=== PATIENT | male | born 1940 | race Caucasian/White ===

== ENCOUNTER 2019-04-08 11:38 | Inpatient (IN) | payer MEDICARE ==
[~2019-04-08] VITALS: Ht 185.4 cm; Wt 90.0 kg
[2019-04-08 12:38] LABS: BASOPHILS # (AUTO) 0.1 X10'3 (0-0.2); BASOPHILS % (AUTO) 1.2 % (0-1); EOSINOPHILS # (AUTO) 2.3 X10'3 (0-0.9); EOSINOPHILS % (AUTO) 24.2 % (0-6); HEMATOCRIT 43.3 % (42.0-52.0); HEMOGLOBIN 14.6 g/dl (14.0-17.9); LYMPHOCYTES # (AUTO) 1.6 X10'3 (1.1-4.8); LYMPHOCYTES % (AUTO) 17.5 % (21-51); MEAN CORPUSCULAR HEMOGLOBIN 31.1 PG (27.0-31.0); MEAN CORPUSCULAR HGB CONC 33.7 g/dL (33.0-36.5); MEAN CORPUSCULAR VOLUME 92.3 FL (78-98); MEAN PLATELET VOLUME 7.9 FL (7.4-10.4); MONOCYTES % (AUTO) 10.7 % (2-12); NEUTROPHILS # (AUTO) 4.3 X10'3 (1.8-7.7); NEUTROPHILS % (AUTO) 46.4 % (42-75); PLATELET COUNT 332 X10'3 (140-440); RED BLOOD COUNT 4.69 X10'6 (4.70-6.10); RED CELL DISTRIBUTION WIDTH 14.6 % (11.5-14.5); WHITE BLOOD COUNT 9.3 X10'3 (4.5-11.0)
[2019-04-08] MEDS ORDERED: methylPREDNISolone sod succ 125mg/2ml vial IV ONE (12:50)
[2019-04-08] MEDS ORDERED: ipratropium/albuterol 3ml nebule NEB ONE (12:55)
[2019-04-08] MEDS ORDERED: levoFLOXACIN-Levaquin 750MG/D5 150 ML IV ONE (12:55)
[2019-04-08 13:01] LABS: PARTIAL THROMBOPLASTIN TIME 29 SECONDS (22-32)
[2019-04-08 13:06] LABS: ALANINE AMINOTRANSFERASE 29 U/L (12-78); ALBUMIN 3.2 G/DL (3.4-5.0); ALBUMIN/GLOBULIN RATIO 0.7 (1.1-1.5); ALKALINE PHOSPHATASE 220 IU/L (46-116); ANION GAP 6 (8-16); ASPARTATE AMINO TRANSFERASE 20 U/L (10-37); BILIRUBIN,TOTAL 0.6 MG/DL (0.1-1.0); BLOOD UREA NITROGEN 9 MG/DL (7-18); BUN/CREATININE RATIO 10.1 (5.4-32.0); CALCIUM 8.9 MG/DL (8.5-10.1); CHLORIDE 101 MMOL/L (99-107); CREATININE 0.89 MG/DL (0.60-1.10); GLUCOSE 151 MG/DL (70-104); POTASSIUM 3.8 MMOL/L (3.5-5.1); SODIUM 136 MMOL/L (135-145); TOTAL CARBON DIOXIDE 29.2 MMOL/L (24-32); eGFR 83 ML/MIN
--- NOTE | 2019-04-08 13:12 | NUR ---
rt at bedside
[2019-04-08 13:14] LABS: TOTAL CELLS COUNTED 100
[2019-04-08 13:15] LABS: PLATELET ESTIMATE NORMAL
[2019-04-08] MEDS ORDERED: ALBU18HF2 INH (14:27)
[2019-04-08] MEDS ORDERED: SITA1TBM7 PO (14:27)
[2019-04-08] MEDS ORDERED: BENA20TA76 PO (14:27)
[2019-04-08] MEDS ORDERED: GLIM1TAB3 PO (14:27)
[2019-04-08] MEDS ORDERED: ATOR40TA71 PO (14:27)
[2019-04-08] MEDS ORDERED: CEPH-572 PO (14:27)
[2019-04-08] MEDS ORDERED: UMEC1DIS INH (14:27)
[2019-04-08] MEDS ORDERED: GLIM4TAB4 PO (14:29)
[2019-04-08] MEDS ORDERED: dextrose 50%-water 50ml dispensing syringe IV PRN ×2 (14:50)
[2019-04-08] MEDS ORDERED: MESSAGE TO PHARMACY PO ONE (14:50)
[2019-04-08] MEDS ORDERED: morphine 2 MG/ML inj. syringe IV PRN ×2 (14:50)
[2019-04-08] MEDS ORDERED: glucagon, human recombinant 1mg kit SUBCUT PRN (14:50)
[2019-04-08] MEDS ORDERED: magnesium hydroxide 30ml (MOM) UD suspension PO PRN (14:50)
[2019-04-08] MEDS ORDERED: mag hydrox/Alum hydrox/simeth 30ml oral suspension PO PRN (14:50)
[2019-04-08] MEDS ORDERED: ondansetron/PF 4mg/2ml inj IV PRN (14:50)
[2019-04-08] MEDS ORDERED: insulin Lispro (HumaLOG) vial - multi-dose SQ SCH (14:50)
[2019-04-08] MEDS ORDERED: HYDROcodone/acetaminophen 5mg/325mg tablet PO PRN (14:50)
[2019-04-08] MEDS ORDERED: acetaminophen 325mg tablet PO PRN ×2 (14:50)
[2019-04-08] MEDS ORDERED: dextrose ORAL solution 15 GM/59 ML bottle PO PRN ×2 (14:50)
[2019-04-08 15:18] LABS: HEMOGLOBIN A1C 6.5 % (4.5-6.2)
[2019-04-08] MEDS: methylPREDNISolone sod succ 125mg/2ml vial IV SCH (16:23)
[2019-04-08 17:00] VITALS: BP 168/85
--- NOTE | 2019-04-08 17:00 | NUR ---
Pt has arrived to floor, at bedside, Report received from Mary VIVEROS
--- NOTE | 2019-04-08 17:25 | NUR ---
Pt refusing blood sugar checks until brings his own finger sticks to poke finger. He does not like ours.
--- NOTE | 2019-04-08 18:53 | NUR ---
Problems reprioritized. Patient report given, questions answered & plan of care reviewed with Fartun Tom.
[2019-04-08] MEDS ORDERED: ipratropium/albuterol 3ml nebule NEB PRN (19:40)
[2019-04-08] MEDS ORDERED: benzonatate 100mg capsule PO PRN (19:50)
[2019-04-08 20:00] VITALS: BP 129/86
[2019-04-08] MEDS: heparin, porcine 5000 units/ml vial SQ SCH (20:00)
[2019-04-08] MEDS ORDERED: insulin glargine (Lantus) pen - multi-dose SQ SCH (21:00)
[2019-04-08] MEDS: ipratropium/albuterol 3ml nebule NEB PRN (21:46)
[2019-04-09 00:08] VITALS: BP 103/60
[2019-04-09] MEDS: methylPREDNISolone sod succ 125mg/2ml vial IV SCH ×2 (00:29→09:11)
--- NOTE | 2019-04-09 02:09 | NUR ---
Patient in room [facility] 350. I have received report from JACKELINE Arnold and had the opportunity to ask questions and assume patient care. Addendum: 04/09/19 at 0210 by Fartun Brown RN Amended: Links added.
[2019-04-09 05:33] LABS: BASOPHILS % (AUTO) 0.5 % (0-1); EOSINOPHILS % (AUTO) 0.1 % (0-6); HEMATOCRIT 42.3 % (42.0-52.0); LYMPHOCYTES # (AUTO) 0.7 X10'3 (1.1-4.8); LYMPHOCYTES % (AUTO) 12.8 % (21-51); MEAN CORPUSCULAR HEMOGLOBIN 30.6 PG (27.0-31.0); MEAN CORPUSCULAR VOLUME 92.7 FL (78-98); MEAN PLATELET VOLUME 8.4 FL (7.4-10.4); MONOCYTES # (AUTO) 0.1 X10'3 (0-0.9); MONOCYTES % (AUTO) 2.2 % (2-12); NEUTROPHILS # (AUTO) 4.5 X10'3 (1.8-7.7); NEUTROPHILS % (AUTO) 84.4 % (42-75); PLATELET COUNT 337 X10'3 (140-440); RED BLOOD COUNT 4.57 X10'6 (4.70-6.10); RED CELL DISTRIBUTION WIDTH 14.3 % (11.5-14.5); WHITE BLOOD COUNT 5.4 X10'3 (4.5-11.0)
[2019-04-09 05:41] LABS: ANION GAP 6 (8-16); BLOOD UREA NITROGEN 12 MG/DL (7-18); CHLORIDE 100 MMOL/L (99-107); CREATININE 0.92 MG/DL (0.60-1.10); GLUCOSE 250 MG/DL (70-104); POTASSIUM 4.2 MMOL/L (3.5-5.1); SODIUM 133 MMOL/L (135-145); TOTAL CARBON DIOXIDE 26.8 MMOL/L (24-32); eGFR 80 ML/MIN
--- NOTE | 2019-04-09 06:10 | NUR ---
Patient in room [facility] 350. I have received report from JACKELINE Willoughby and had the opportunity to ask questions and assume patient care.
--- NOTE | 2019-04-09 06:24 | NUR ---
Problems reprioritized. Patient report given, questions answered & plan of care reviewed with JACKELINE Persaud. Addendum: 04/09/19 at 0624 by Fartun Brown RN Amended: Links added.
--- NOTE | 2019-04-09 06:33 | NUR ---
Problems reprioritized. Patient report given, questions answered & plan of care reviewed with JACKELINE Persaud. Addendum: 04/09/19 at 0633 by Fartun Brown RN Amended: Links added.
[2019-04-09 07:27] VITALS: BP 136/89
[2019-04-09] MEDS: heparin, porcine 5000 units/ml vial SQ SCH (08:00)
[2019-04-09] MEDS ORDERED: non-formulary drug (Umeclidinium Brm/Vilanterol Tr (Anoro Ellipta 62.5-25 Mcg INH) 1 PUFF) INH SCH (08:00)
[2019-04-09] MEDS ORDERED: levoFLOXACIN-Levaquin 750MG/D5 150 ML IV SCH (08:00)
[2019-04-09] MEDS ORDERED: VILANTEROL IH SCH (08:00)
[2019-04-09] MEDS ORDERED: non-formulary drug (Atorvastatin Calcium 1 TAB) PO SCH (08:00)
[2019-04-09] MEDS ORDERED: UMECLIDINIUM IH SCH (08:00)
[2019-04-09] MEDS ORDERED: BENAZEPRIL HCL PO SCH (08:00)
[2019-04-09] MEDS ORDERED: lisinopril 20mg tablet PO SCH (08:00)
[2019-04-09] MEDS ORDERED: atorvastatin 20mg tablet PO SCH (08:00)
--- NOTE | 2019-04-09 09:00 | NUR ---
Patient refusing insulin. He is wanting to go AMA if the doctor won't discharge him. The patient said he takes pills at home and doesn't want insulin. He though that his sugar was a false high reading because he had a splenda packet before Francoise, RN took it. I explained that his sugar was around 250 on his labs this am, and that was round 0400. I also explained that solumedrol would make his sugar go up as well. He understood but thought that the solumedrol was the cause so he didn't need anything. I explained that just because a medication is causing the elevated sugar doesn't mean that we don't treat it. I understood but didn't want any insulin. He said that he would take his pill when he got home.
[2019-04-09] MEDS ORDERED: LEVO750T46 PO (09:24)
[2019-04-09] MEDS ORDERED: PRED10TA23 PO (09:24)
[2019-04-09] MEDS: ipratropium/albuterol 3ml nebule NEB PRN (09:36)
--- NOTE | 2019-04-09 10:00 | NUR ---
O2 Sat at rest on room air: 91% If below 89%: If O2 Sat did not drop below 89% on room air,ambulate patient on room air. O2 Sat while ambulating on room air: 87% Recovery O2 Sat while ambulating on LPM: 1.5% No further documentation is necessary. If patient does not drop below 89% while ambulating, he/she does not qualify for home O2. Addendum: 04/09/19 at 1034 by Cori Arellano RN Recovery O2 is 1L. Addendum: 04/09/19 at 1419 by Cori Arellano RN 94% on 1L of O2.
[2019-04-09 11:30] VITALS: BP 102/53
--- NOTE | 2019-04-09 11:53 | NUR ---
pt refused 1200 accucheck
--- NOTE | 2019-04-09 12:30 | NUR ---
Patient discharged. PIV removed: Cath tip intact. Education given and patient verbalized understanding. Given extensive info regarding smoking cessation. Patient encouraged to try nicotine patches. Patient was also given the diabetic survival skills and encouraged to come to the class if he has any questions. Patient was wheeled down by staff.
== END 2019-04-09 12:24 | disposition home or self-care (01) | DRG 189 ==
LOC: ER 11:39 → SUR 3N 17:04 → CMPBEDREQ 19:50
PROVIDERS: ADMIT Internal Medicine; ATTEND Internal Medicine
DX: J96.01 Acute respiratory failure with hypoxia (principal); J44.0 Chronic obstructive pulmonary disease with (acute) lower respiratory infection; J44.1 Chronic obstructive pulmonary disease with (acute) exacerbation; E11.9 Type 2 diabetes mellitus without complications; E78.5 Hyperlipidemia, unspecified; F12.90 Cannabis use, unspecified, uncomplicated; F17.210 Nicotine dependence, cigarettes, uncomplicated; J20.9 Acute bronchitis, unspecified; Z88.1 Allergy status to other antibiotic agents; Z79.84 Long term (current) use of oral hypoglycemic drugs; Z79.899 Other long term (current) drug therapy
CPT/HCPCS: 36415; 71045; 80048; 80053; 82948; 83036; 83880; 84145; 85025; 85610; 85730; 87040; 87081; 93005; 94640; 94760; 96365; 96375; 99285; G0378; J1644; J1815; J1956; J2930

== ENCOUNTER 2019-06-01 04:53 | Emergency (ER) | payer MEDICARE ==
[~2019-06-01] VITALS: Ht 185.4 cm; Wt 90.9 kg
[~2019-06-01 04:53] MED LIST: ALBU18HF2 INH; ATOR40TA71 PO; BENA20TA76 PO; GLIM4TAB4 PO; SITA1TBM7 PO; UMEC1DIS INH
[2019-06-01] MEDS ORDERED: methylPREDNISolone sod succ 125mg/2ml vial IV ONE (05:00)
[2019-06-01] MEDS ORDERED: albuterol 2.5 MG/3 ML nebule CONTNEB PRN (05:00)
[2019-06-01] MEDS ORDERED: normal saline 1000ml 1,000 ML IV ONE (05:00)
[2019-06-01 05:38] LABS: HEMATOCRIT 41.6 % (42.0-52.0); HEMOGLOBIN 13.8 g/dl (14.0-17.9); MEAN CORPUSCULAR HEMOGLOBIN 30.5 PG (27.0-31.0); MEAN CORPUSCULAR HGB CONC 33.1 g/dL (33.0-36.5); MEAN CORPUSCULAR VOLUME 92.1 FL (78-98); MEAN PLATELET VOLUME 8.1 FL (7.4-10.4); PLATELET COUNT 272 X10'3 (140-440); RED BLOOD COUNT 4.51 X10'6 (4.70-6.10); RED CELL DISTRIBUTION WIDTH 15.1 % (11.5-14.5); WHITE BLOOD COUNT 11.6 X10'3 (4.5-11.0)
[2019-06-01 05:48] LABS: PARTIAL THROMBOPLASTIN TIME 27 SECONDS (22-32)
[2019-06-01 05:52] LABS: ALANINE AMINOTRANSFERASE 27 U/L (12-78); ALBUMIN 3.1 G/DL (3.4-5.0); ALBUMIN/GLOBULIN RATIO 0.7 (1.1-1.5); ALKALINE PHOSPHATASE 195 IU/L (46-116); ANION GAP 9 (8-16); ASPARTATE AMINO TRANSFERASE 20 U/L (10-37); BILIRUBIN,TOTAL 0.6 MG/DL (0.1-1.0); BLOOD UREA NITROGEN 10 MG/DL (7-18); BUN/CREATININE RATIO 11.6 (5.4-32.0); CALCIUM 9.4 MG/DL (8.5-10.1); CHLORIDE 104 MMOL/L (99-107); CREATININE 0.86 MG/DL (0.60-1.10); GLUCOSE 144 MG/DL (70-104); MAGNESIUM 1.8 MG/DL (1.5-2.4); POTASSIUM 3.5 MMOL/L (3.5-5.1); SODIUM 141 MMOL/L (135-145); TOTAL CARBON DIOXIDE 27.6 MMOL/L (24-32); TOTAL PROTEIN 7.5 G/DL (6.4-8.2); eGFR 86 ML/MIN
[2019-06-01 06:11] LABS: TOTAL CELLS COUNTED 100
[2019-06-01 06:12] LABS: ANISOCYTOSIS 1+; PLATELET ESTIMATE NORMAL
[2019-06-01] MEDS ORDERED: PRED20TA PO (07:36)
--- NOTE | 2019-06-01 07:50 | NUR ---
DR ESCAMILLA INFORMED OF PT BLOOD PRESSURE, NO ORDER RECEIVED AT THIS TIME, PT OK TO BE DISCHARGE PT DOES NOT WANT TO BE ADMITTED PER DR ESCAMILLA
[2019-06-01 08:25] VITALS: BP 111/66
== END 2019-06-01 08:27 | disposition home or self-care (01) ==
LOC: ER 04:54
DX: J44.1 Chronic obstructive pulmonary disease with (acute) exacerbation (principal); R06.03 Acute respiratory distress; R00.0 Tachycardia, unspecified; F12.90 Cannabis use, unspecified, uncomplicated; Z98.890 Other specified postprocedural states; Z87.891 Personal history of nicotine dependence; Z88.1 Allergy status to other antibiotic agents; Z79.899 Other long term (current) drug therapy
CPT/HCPCS: 36415; 71045; 80053; 83605; 83735; 84484; 85025; 85610; 85730; 87040; 93005; 94644; 94760; 96374; 99291; J2930; J7030; 94640

== ENCOUNTER 2021-05-09 16:58 | Emergency (ER) | payer MEDICARE ==
[~2021-05-09] VITALS: Ht 182.9 cm; Wt 93.6 kg
[~2021-05-09 16:58] MED LIST changes: -GLIM4TAB4 PO; +GLIM4TAB7 PO
[2021-05-09] MEDS ORDERED: acetaminophen 325mg tablet PO STA (17:49)
[2021-05-09 19:14] LABS: BASOPHILS % (AUTO) 0.7 % (0-1); EOSINOPHILS % (AUTO) 0.8 % (0-6); HEMATOCRIT 38.6 % (42.0-52.0); HEMOGLOBIN 12.9 g/dl (14.0-17.9); LYMPHOCYTES # (AUTO) 0.4 X10'3 (1.1-4.8); LYMPHOCYTES % (AUTO) 7.7 % (21-51); MEAN CORPUSCULAR HEMOGLOBIN 31.6 PG (27.0-31.0); MEAN CORPUSCULAR HGB CONC 33.5 g/dL (33.0-36.5); MEAN CORPUSCULAR VOLUME 94.3 FL (78-98); MEAN PLATELET VOLUME 8.5 FL (7.4-10.4); MONOCYTES # (AUTO) 0.9 X10'3 (0-0.9); MONOCYTES % (AUTO) 18.2 % (2-12); NEUTROPHILS # (AUTO) 3.6 X10'3 (1.8-7.7); NEUTROPHILS % (AUTO) 72.6 % (42-75); PLATELET COUNT 192 X10'3 (140-440); RED BLOOD COUNT 4.09 X10'6 (4.70-6.10); RED CELL DISTRIBUTION WIDTH 14.8 % (11.5-14.5)
[2021-05-09 19:42] LABS: ALANINE AMINOTRANSFERASE 74 U/L (12-78); ALBUMIN 3.1 G/DL (3.4-5.0); ALBUMIN/GLOBULIN RATIO 0.8 (1.1-1.5); ALKALINE PHOSPHATASE 156 IU/L (46-116); ANION GAP 9 (8-16); ASPARTATE AMINO TRANSFERASE 71 U/L (10-37); BILIRUBIN,TOTAL 0.3 MG/DL (0.1-1.0); BLOOD UREA NITROGEN 12 MG/DL (7-18); BUN/CREATININE RATIO 12.9 (5.4-32.0); CALCIUM 7.5 MG/DL (8.5-10.1); CHLORIDE 102 MMOL/L (99-107); CREATININE 0.93 MG/DL (0.60-1.10); GLUCOSE 205 MG/DL (70-104); MAGNESIUM 2.3 MG/DL (1.5-2.4); POTASSIUM 4.1 MMOL/L (3.5-5.1); SODIUM 138 MMOL/L (135-145); TOTAL CARBON DIOXIDE 26.6 MMOL/L (24-32); TOTAL PROTEIN 6.8 G/DL (6.4-8.2); eGFR 79 ML/MIN
[2021-05-09] MEDS ORDERED: CASIRIVIMAB/IMDEVIMAB inject. 10 ML in normal saline 100ml IV soln 100 ML IV ONE (20:35)
[2021-05-09 21:00] VITALS: BP 136/69
--- NOTE | 2021-05-09 21:05 | NUR ---
PT IS RESTING QUIETLY ON GURNEY, PT READ INFO REGARDING REGENERON AND DECIDED TO DECLINE MEDICATION, DR CHIU AWARE, PT SAID HE WOULD LIKE TO GO HOME AND TREAT SELF WITH OTC MEDS, FLUID. PT LIVES WITH HIS AND HIS DAUGHTER CAN HELP OUT
[2021-05-09] MEDS ORDERED: DEXA6TAB6 PO (21:30)
[2021-05-10] MEDS ORDERED: GLIM4TAB7 PO (23:37)
[2021-05-10] MEDS ORDERED: SITA1TBM7 PO (23:37)
[2021-05-10] MEDS ORDERED: FLO0.4C PO (23:54)
[2021-05-10] MEDS ORDERED: DIGO250T2 PO (23:56)
[2021-05-10] MEDS ORDERED: PROC10TA10 PO (23:56)
[2021-05-10] MEDS ORDERED: FLUT1BLS4 INH (23:57)
== END 2021-05-09 21:45 | disposition home or self-care (01) ==
LOC: ER 16:59
DX: U07.1 COVID-19 (principal); R26.89 Other abnormalities of gait and mobility; J44.9 Chronic obstructive pulmonary disease, unspecified; F12.90 Cannabis use, unspecified, uncomplicated; Z72.89 Other problems related to lifestyle; Z98.890 Other specified postprocedural states; Z88.0 Allergy status to penicillin; Z88.1 Allergy status to other antibiotic agents; Z79.899 Other long term (current) drug therapy
CPT/HCPCS: 36415; 71045; 80053; 83605; 83735; 84145; 85025; 87040; 87077; 87186; 87635; 93005; 99285; C9803

== ENCOUNTER 2021-05-10 21:26 | Inpatient (IN) | payer MEDICARE ==
[~2021-05-10] VITALS: Ht 182.9 cm; Wt 94.0 kg
[~2021-05-10 21:26] MED LIST changes: +DEXA6TAB6 PO
[2021-05-10] MEDS ORDERED: normal saline 1000ML IV soln IVB ONE (21:35)
[2021-05-10] MEDS ORDERED: dexamethasone inj 8 MG in normal saline 50ml IV soln 50 ML IV ONE (21:35)
[2021-05-10] MEDS ORDERED: ALBUTEROL INHALER 1 PUFF/90 MCG INHALER IH PRN (21:35)
[2021-05-10 21:59] LABS: BASOPHILS % (AUTO) 0.5 % (0-1); EOSINOPHILS % (AUTO) 0.6 % (0-6); HEMATOCRIT 39.4 % (42.0-52.0); HEMOGLOBIN 13.2 g/dl (14.0-17.9); LYMPHOCYTES # (AUTO) 0.5 X10'3 (1.1-4.8); LYMPHOCYTES % (AUTO) 12.4 % (21-51); MEAN CORPUSCULAR HEMOGLOBIN 31.4 PG (27.0-31.0); MEAN CORPUSCULAR HGB CONC 33.5 g/dL (33.0-36.5); MONOCYTES # (AUTO) 0.7 X10'3 (0-0.9); MONOCYTES % (AUTO) 17.1 % (2-12); NEUTROPHILS % (AUTO) 69.4 % (42-75); PLATELET COUNT 169 X10'3 (140-440); RED BLOOD COUNT 4.19 X10'6 (4.70-6.10); RED CELL DISTRIBUTION WIDTH 14.7 % (11.5-14.5); WHITE BLOOD COUNT 4.3 X10'3 (4.5-11.0)
[2021-05-10] MEDS ORDERED: acetaminophen 325mg tablet PO ONE (22:00)
[2021-05-10 22:13] LABS: D-DIMER 1.21 MG/L FEU (0-0.50)
[2021-05-10 22:34] LABS: ALANINE AMINOTRANSFERASE 71 U/L (12-78); ALBUMIN 3.4 G/DL (3.4-5.0); ALBUMIN/GLOBULIN RATIO 0.9 (1.1-1.5); ALKALINE PHOSPHATASE 160 IU/L (46-116); ANION GAP 6 (8-16); ASPARTATE AMINO TRANSFERASE 78 U/L (10-37); BILIRUBIN,TOTAL 0.3 MG/DL (0.1-1.0); BLOOD UREA NITROGEN 13 MG/DL (7-18); BUN/CREATININE RATIO 12.6 (5.4-32.0); C-REACTIVE PROTEIN 3.53 MG/DL (0.0-0.5); CALCIUM 7.7 MG/DL (8.5-10.1); CHLORIDE 102 MMOL/L (99-107); CREATININE 1.03 MG/DL (0.60-1.10); GLUCOSE 181 MG/DL (70-104); POTASSIUM 3.8 MMOL/L (3.5-5.1); SODIUM 136 MMOL/L (135-145); TOTAL CARBON DIOXIDE 27.8 MMOL/L (24-32); eGFR 70 ML/MIN
[2021-05-10] MEDS ORDERED: CefTRIAXone 2gm/D5W 50ml BAG 50 ML IV ONE (22:35)
[2021-05-10] MEDS ORDERED: normal saline 1000ML IV soln IV ONE (22:35)
[2021-05-10] MEDS ORDERED: vancomycin/NS 1 GM ADD-VANTAGE 250 ML IV ONE (22:35)
[2021-05-10 22:57] LABS: NEUTROPHILS % (MANUAL) 69 % (42-75); TOTAL CELLS COUNTED 100
[2021-05-10 22:58] LABS: BANDS% (MANUAL) 6 % (0-10); LYMPHOCYTES % (MANUAL) 15 % (21-51); MONOCYTES % (MANUAL) 10 % (2-12); PLATELET ESTIMATE NORMAL
[2021-05-10] MEDS ORDERED: iohexol 350MG/ML 100ml bottle IV ONE (23:26)
[2021-05-10] MEDS ORDERED: GLIM4TAB7 PO (23:37)
[2021-05-10] MEDS ORDERED: SITA1TBM7 PO (23:37)
[2021-05-10] MEDS ORDERED: FLO0.4C PO (23:54)
[2021-05-10] MEDS ORDERED: DIGO250T2 PO (23:56)
[2021-05-10] MEDS ORDERED: PROC10TA10 PO (23:56)
[2021-05-10] MEDS ORDERED: FLUT1BLS4 INH (23:57)
--- NOTE | 2021-05-10 23:58 | NUR ---
PTS BLOOD CULTURES DRAWN ON THE DURING HIS ER VISIT HERE ARE POSITIVE (ANEROBIC BOTTLE WITH GRAM + COCCI IN CLUSTERS). JAMAL VILLAFUERTE UPDATED AND ALREADY AWARE OF THIS. PTS HAD ANOTHER SET OF BLOOD CULTURES DRAWN 2 HRS AGO AND LAB CALLING TO CLARIFY IF PROVIDER WANTS THEM RUN. PER JAMAL VILLAFUERTE, HE ONLY WANTS ONE OF THE NEW SETS CULTURED. LAB UPDATED OF THIS. PT TAKEN TO CTA OF CHEST. PT REPORTS HE HAS BEEN GETTING WORSE AND CANNOT EVEN GET UP OUT OF THE BED. I ASSISTED PT TO SIT TO [place] AND HE ATTEMPTED TO USE THE URINAL WITH NO SUCCESS. PT REQUIRED MAX ASSIST TO BALANCE WHILE SITTIING UP. STATES AT BASELINE HE CAN GET UP AND MOVE AROUND WEEL AND REQUIRES NO ASSISTIVE DEVICE. PTS IS CURRENTLY IN THE ER AND TO BE ADMITTED HERE AND IS ALSO COVID +. PT PROVIDED A PHONE TO CALL HER.
[2021-05-11] MEDS ORDERED: enoxaparin 100mg/ml syringe SUBCUT ONE
[2021-05-11] MEDS ORDERED: ALBUTEROL INHALER 1 PUFF/90 MCG INHALER IH PRN (00:35)
[2021-05-11] MEDS ORDERED: proCHLORperazine 10mg tablet PO PRN (00:35)
[2021-05-11] MEDS ORDERED: potassium Cl 20 mEq SR tablet PO PRN ×2 (00:45)
[2021-05-11] MEDS ORDERED: dextrose ORAL solution 15 GM/59 ML bottle PO PRN ×2 (00:45)
[2021-05-11] MEDS ORDERED: ondansetron/PF 4mg/2ml inj IV PRN (00:45)
[2021-05-11] MEDS ORDERED: dextrose 50%-water 50ml dispensing syringe IV PRN ×2 (00:45)
[2021-05-11] MEDS ORDERED: MESSAGE TO PHARMACY PO ONE (00:45)
[2021-05-11] MEDS ORDERED: acetaminophen 325mg tablet PO PRN ×2 (00:45→23:40)
[2021-05-11] MEDS ORDERED: magnesium 2GM in 50ml NS 50 ML IV PRN (00:45)
[2021-05-11] MEDS ORDERED: potassium Cl 40MEQ/1/2NS 520ml 520 ML IV PRN ×2 (00:45)
[2021-05-11] MEDS ORDERED: mag hydrox/Alum hydrox/simeth 30ml oral suspension PO PRN (00:45)
[2021-05-11] MEDS ORDERED: insulin Lispro (HumaLOG) vial - multi-dose SQ SCH (00:45)
[2021-05-11] MEDS ORDERED: glucagon, human recombinant 1mg kit SUBCUT PRN (00:45)
[2021-05-11] MEDS: normal saline 1000ml 1,000 ML IV SCH ×3 (00:45→20:33)
[2021-05-11] MEDS ORDERED: magnesium 4gm in 100ml NS 100 ML IV PRN (00:45)
[2021-05-11 01:40] LABS: D-DIMER 1.16 MG/L FEU (0-0.50)
[2021-05-11 03:28] VITALS: BP 158/81
[2021-05-11] MEDS: vancomycin/NS 1 GM ADD-VANTAGE 250 ML IV SCH ×2 (03:30→21:47)
[2021-05-11 07:30] VITALS: BP 160/88
--- NOTE | 2021-05-11 07:49 | NUR ---
pt blood sugar is 230 thia a.m fasting. he is refusing insulin. Wants his home meds restarted. Addendum: 05/11/21 at 1329 by Zahra Ferraro RN Marissa w MD Ortega at bedside, he restarted pt home meds. Januvia, glipizide and metformin restarted, however only glipizide and januvia were given, metformin will not be started until 05/13 because the pt had a CT scan w contrast on admit.
[2021-05-11] MEDS: nicotine 21mg patch - 24 hr TD SCH ×2 (07:52→08:00)
[2021-05-11] MEDS: tamsulosin 0.4mg capsule PO SCH (07:54)
[2021-05-11] MEDS: atorvastatin 20mg tablet PO SCH (07:54)
[2021-05-11] MEDS: DEXAMETHASONE 6 MG TABLET PO SCH (07:55)
[2021-05-11] MEDS: lisinopril 20mg tablet PO SCH (07:59)
[2021-05-11] MEDS: enoxaparin 50mg/0.5ml (from 3ml vial) syringe SUBCUT SCH ×2 (08:00→20:25)
[2021-05-11] MEDS: K and/or MAG REPLACEMENT MC SCH ×2 (08:00→20:00)
--- NOTE | 2021-05-11 08:33 | NUR ---
Noted pt with T2DM with current A1c 7.6%, well controlled for age, DM education not warranted at this time. Will continue to follow. Addendum: 05/11/21 at [address] Amended: Links added.
[2021-05-11 10:00] VITALS: BP 158/81
[2021-05-11] MEDS ORDERED: metFORMIN 500mg tablet PO ONE (10:35)
[2021-05-11] MEDS: linagliptin 5mg tablet PO SCH (11:30)
[2021-05-11 15:00] VITALS: BP 130/80
--- NOTE | 2021-05-11 18:43 | NUR ---
Patient in room COVID 01. I have received report from MYRNA VIVEROS and had the opportunity to ask questions and assume patient care.
--- NOTE | 2021-05-11 18:44 | NUR ---
Patient in room COVID 01. I have received report from ROSETTA VIVEROS and had the opportunity to ask questions and assume patient care.
[2021-05-11 19:00] VITALS: BP 158/87
[2021-05-11] MEDS ORDERED: VANCOMYCIN 1GM/200ML IVPB 200 ML IV SCH (20:00)
[2021-05-11] MEDS: digoxin 250mcg (0.25mg) tablet PO SCH (20:24)
[2021-05-11] MEDS: insulin glargine (Lantus) pen - multi-dose SQ SCH (21:00)
[2021-05-11 23:00] VITALS: BP 162/83
--- NOTE | 2021-05-11 23:27 | NUR ---
Patient on PO blood glucose medications
[2021-05-12 04:07] VITALS: BP 151/88
--- NOTE | 2021-05-12 06:33 | NUR ---
Problems reprioritized. Patient report given, questions answered & plan of care reviewed with PHILLIP VIVEROS.
--- NOTE | 2021-05-12 06:35 | NUR ---
Patient in room COVID 01. I have received report from Lorin VIVEROS and had the opportunity to ask questions and assume patient care.
[2021-05-12 07:00] VITALS: BP 137/74
[2021-05-12] MEDS: K and/or MAG REPLACEMENT MC SCH ×2 (08:00→19:27)
[2021-05-12] MEDS: nicotine 21mg patch - 24 hr TD SCH (08:00)
[2021-05-12] MEDS: enoxaparin 50mg/0.5ml (from 3ml vial) syringe SUBCUT SCH ×2 (08:50→19:26)
[2021-05-12] MEDS: atorvastatin 20mg tablet PO SCH (08:51)
[2021-05-12] MEDS: docusate sod 100mg capsule PO PRN (08:51)
[2021-05-12] MEDS: DEXAMETHASONE 6 MG TABLET PO SCH (08:52)
[2021-05-12] MEDS: lisinopril 20mg tablet PO SCH (08:52)
[2021-05-12] MEDS: linagliptin 5mg tablet PO SCH (08:52)
[2021-05-12] MEDS: tamsulosin 0.4mg capsule PO SCH (08:53)
[2021-05-12 08:54] LABS: BASOPHILS # (AUTO) 0.1 X10'3 (0-0.2); BASOPHILS % (AUTO) 1.4 % (0-1); EOSINOPHILS % (AUTO) 0 % (0-6); HEMATOCRIT 40.3 % (42.0-52.0); HEMOGLOBIN 13.3 g/dl (14.0-17.9); LYMPHOCYTES # (AUTO) 0.8 X10'3 (1.1-4.8); LYMPHOCYTES % (AUTO) 12.8 % (21-51); MEAN CORPUSCULAR HEMOGLOBIN 30.8 PG (27.0-31.0); MEAN CORPUSCULAR VOLUME 93.2 FL (78-98); MEAN PLATELET VOLUME 8.1 FL (7.4-10.4); MONOCYTES # (AUTO) 0.8 X10'3 (0-0.9); MONOCYTES % (AUTO) 12.2 % (2-12); NEUTROPHILS # (AUTO) 4.6 X10'3 (1.8-7.7); NEUTROPHILS % (AUTO) 73.6 % (42-75); PLATELET COUNT 181 X10'3 (140-440); RED BLOOD COUNT 4.32 X10'6 (4.70-6.10); RED CELL DISTRIBUTION WIDTH 15.3 % (11.5-14.5); WHITE BLOOD COUNT 6.2 X10'3 (4.5-11.0)
[2021-05-12 09:13] LABS: D-DIMER 0.84 MG/L FEU (0-0.50)
[2021-05-12 09:18] LABS: ALANINE AMINOTRANSFERASE 67 U/L (12-78); ALBUMIN 3.3 G/DL (3.4-5.0); ALBUMIN/GLOBULIN RATIO 0.9 (1.1-1.5); ALKALINE PHOSPHATASE 144 IU/L (46-116); ANION GAP 11 (8-16); ASPARTATE AMINO TRANSFERASE 85 U/L (10-37); BILIRUBIN,TOTAL 0.4 MG/DL (0.1-1.0); BLOOD UREA NITROGEN 15 MG/DL (7-18); BUN/CREATININE RATIO 15.8 (5.4-32.0); C-REACTIVE PROTEIN 2.67 MG/DL (0.0-0.5); CALCIUM 7.9 MG/DL (8.5-10.1); CHLORIDE 104 MMOL/L (99-107); CREATININE 0.95 MG/DL (0.60-1.10); GLUCOSE 259 MG/DL (70-104); MAGNESIUM 2.2 MG/DL (1.5-2.4); SODIUM 141 MMOL/L (135-145); TOTAL CARBON DIOXIDE 25.6 MMOL/L (24-32); TOTAL PROTEIN 7.1 G/DL (6.4-8.2); eGFR 77 ML/MIN
[2021-05-12] MEDS ORDERED: VANCOMYCIN LEVEL IV ONE (09:30)
[2021-05-12 11:00] VITALS: BP 132/84
[2021-05-12 15:00] VITALS: BP 154/87
--- NOTE | 2021-05-12 17:14 | NUR ---
Patient's blood sugar was 306mg/dl at this time, patient aware of this blood sugar result. He immediately told me "I'm still not going to take an insulin!"
--- NOTE | 2021-05-12 17:19 | NUR ---
Patient has been refusing to be hooked to main IVF once IV antibiotic is done infusing.
--- NOTE | 2021-05-12 18:35 | NUR ---
Problems reprioritized. Patient report given, questions answered & plan of care reviewed with Love VIVEROS.
[2021-05-12 19:00] VITALS: BP 154/87
[2021-05-12] MEDS: normal saline 1000ml 1,000 ML IV SCH ×2 (19:15→20:25)
[2021-05-12] MEDS: digoxin 250mcg (0.25mg) tablet PO SCH (19:29)
[2021-05-12 20:00] VITALS: BP 156/81
[2021-05-12] MEDS: insulin glargine (Lantus) pen - multi-dose SQ SCH (21:00)
[2021-05-13 02:00] VITALS: BP 158/86
[2021-05-13] MEDS: normal saline 1000ml 1,000 ML IV SCH (02:45)
--- NOTE | 2021-05-13 06:49 | NUR ---
I have received report from Love VIVEROS and had the opportunity to ask questions and assume patient care.
[2021-05-13 07:28] VITALS: BP 133/82
--- NOTE | 2021-05-13 07:33 | NUR ---
Patient states he doesn't want his BS taken today. DM medication Glucophage started today.
[2021-05-13] MEDS: K and/or MAG REPLACEMENT MC SCH (08:00)
[2021-05-13] MEDS: nicotine 21mg patch - 24 hr TD SCH (08:00)
[2021-05-13] MEDS ORDERED: metFORMIN 500mg tablet PO SCH (08:00)
[2021-05-13] MEDS: DEXAMETHASONE 6 MG TABLET PO SCH (08:18)
[2021-05-13] MEDS: docusate sod 100mg capsule PO PRN (08:18)
[2021-05-13] MEDS: linagliptin 5mg tablet PO SCH (08:18)
[2021-05-13] MEDS: atorvastatin 20mg tablet PO SCH (08:19)
[2021-05-13] MEDS: lisinopril 20mg tablet PO SCH (08:19)
[2021-05-13] MEDS: enoxaparin 50mg/0.5ml (from 3ml vial) syringe SUBCUT SCH (08:20)
[2021-05-13] MEDS: tamsulosin 0.4mg capsule PO SCH (08:25)
[2021-05-13 08:26] LABS: BASOPHILS % (AUTO) 0.1 % (0-1); EOSINOPHILS % (AUTO) 0 % (0-6); HEMATOCRIT 38.6 % (42.0-52.0); HEMOGLOBIN 13.1 g/dl (14.0-17.9); LYMPHOCYTES # (AUTO) 0.8 X10'3 (1.1-4.8); LYMPHOCYTES % (AUTO) 11.1 % (21-51); MEAN CORPUSCULAR HEMOGLOBIN 31.1 PG (27.0-31.0); MEAN CORPUSCULAR HGB CONC 33.9 g/dL (33.0-36.5); MEAN CORPUSCULAR VOLUME 91.8 FL (78-98); MEAN PLATELET VOLUME 8.6 FL (7.4-10.4); MONOCYTES # (AUTO) 0.8 X10'3 (0-0.9); MONOCYTES % (AUTO) 11.2 % (2-12); NEUTROPHILS # (AUTO) 5.2 X10'3 (1.8-7.7); NEUTROPHILS % (AUTO) 77.6 % (42-75); PLATELET COUNT 180 X10'3 (140-440); RED CELL DISTRIBUTION WIDTH 14.9 % (11.5-14.5); WHITE BLOOD COUNT 6.8 X10'3 (4.5-11.0)
[2021-05-13 08:54] LABS: D-DIMER 0.44 MG/L FEU (0-0.50)
[2021-05-13 09:31] LABS: ALANINE AMINOTRANSFERASE 68 U/L (12-78); ALBUMIN 3.2 G/DL (3.4-5.0); ALBUMIN/GLOBULIN RATIO 0.9 (1.1-1.5); ALKALINE PHOSPHATASE 146 IU/L (46-116); ANION GAP 9 (8-16); ASPARTATE AMINO TRANSFERASE 83 U/L (10-37); BILIRUBIN,TOTAL 0.4 MG/DL (0.1-1.0); BLOOD UREA NITROGEN 17 MG/DL (7-18); BUN/CREATININE RATIO 20.5 (5.4-32.0); C-REACTIVE PROTEIN 1.33 MG/DL (0.0-0.5); CALCIUM 8.2 MG/DL (8.5-10.1); CHLORIDE 104 MMOL/L (99-107); CREATININE 0.83 MG/DL (0.60-1.10); GLUCOSE 182 MG/DL (70-104); MAGNESIUM 2.1 MG/DL (1.5-2.4); POTASSIUM 3.7 MMOL/L (3.5-5.1); SODIUM 140 MMOL/L (135-145); TOTAL CARBON DIOXIDE 27.2 MMOL/L (24-32); TOTAL PROTEIN 6.7 G/DL (6.4-8.2); eGFR 90 ML/MIN
[2021-05-13] MEDS ORDERED: DEXA6TAB PO (10:50)
[2021-05-13] MEDS ORDERED: ALBU8.5H17 INH (10:50)
[2021-05-13 12:01] VITALS: BP 134/81
--- NOTE | 2021-05-13 14:51 | NUR ---
Patient discharged home with family. All education completed with neisha, verbal acknowledgement completed by patient of understanding. Patient aware of when to take next medications and has a scrip at the pharmacy to warehouse order picker. Patient dressed self for discharge. No O2 required, patient tolerated well. Patient able to hold a complete conversation without any SOB. All patient belongings home with patient along with paperwork signed and education to follow up with [facility] in one week. Patient aware to call 911 or return to ER if any issue come about or if symptoms return.
[2021-05-13] MEDS ORDERED: VANCOMYCIN LEVEL IV ONE (23:30)
== END 2021-05-13 14:45 | disposition home or self-care (01) | DRG 177 ==
LOC: ER 21:26 → ED HOLD 05-11 00:46 → COVID IP 05-11 02:00
PROVIDERS: ADMIT Family Medicine; ATTEND Family Medicine
PROC: B32T1ZZ Computerized Tomography (CT Scan) of Left Pulmonary Artery using Low Osmolar Contrast (ICD-10-PCS; principal; 2021-05-11)
PROC: B3201ZZ Computerized Tomography (CT Scan) of Thoracic Aorta using Low Osmolar Contrast (ICD-10-PCS; 2021-05-11)
PROC: B32S1ZZ Computerized Tomography (CT Scan) of Right Pulmonary Artery using Low Osmolar Contrast (ICD-10-PCS; 2021-05-11)
DX: U07.1 COVID-19 (principal); J12.82 Pneumonia due to coronavirus disease 2019; J44.1 Chronic obstructive pulmonary disease with (acute) exacerbation; J44.0 Chronic obstructive pulmonary disease with (acute) lower respiratory infection; J96.10 Chronic respiratory failure, unspecified whether with hypoxia or hypercapnia; R62.7 Adult failure to thrive; E11.9 Type 2 diabetes mellitus without complications; E78.5 Hyperlipidemia, unspecified; F17.210 Nicotine dependence, cigarettes, uncomplicated; F12.90 Cannabis use, unspecified, uncomplicated; Z79.84 Long term (current) use of oral hypoglycemic drugs; Z88.0 Allergy status to penicillin; Z88.1 Allergy status to other antibiotic agents; Z68.28 Body mass index [BMI] 28.0-28.9, adult; Z99.81 Dependence on supplemental oxygen; Z79.899 Other long term (current) drug therapy; Z71.6 Tobacco abuse counseling
CPT/HCPCS: 36415; 71045; 71275; 80053; 80202; 82948; 83036; 83605; 83735; 84145; 85007; 85025; 85379; 86140; 87040; 87077; 87081; 87186; 87635; 93005; 94760; 96372; 97110; 97161; 97530; 99285; C9803; G0378; J0696; J1100; J1650; J1815; J3370; J7030; J8540; Q9967

== ENCOUNTER 2021-12-18 09:25 | Emergency (ER) | payer MEDICARE ==
[~2021-12-18] VITALS: Ht 182.9 cm; Wt 72.7 kg
[~2021-12-18 09:25] MED LIST changes: +ALBU8.5H17 INH; +DEXA6TAB PO; -DEXA6TAB6 PO; +DIGO250T2 PO; +FLO0.4C PO; +PROC10TA10 PO
[2021-12-18 10:18] LABS: BASOPHILS # (AUTO) 0.1 X10'3 (0-0.2); BASOPHILS % (AUTO) 0.5 % (0-1); EOSINOPHILS # (AUTO) 4.8 X10'3 (0-0.9); EOSINOPHILS % (AUTO) 36.5 % (0-6); HEMATOCRIT 38.7 % (42.0-52.0); HEMOGLOBIN 13.3 g/dl (14.0-17.9); LYMPHOCYTES # (AUTO) 1.5 X10'3 (1.1-4.8); LYMPHOCYTES % (AUTO) 11.3 % (21-51); MEAN CORPUSCULAR HGB CONC 34.3 g/dL (33.0-36.5); MEAN CORPUSCULAR VOLUME 93.2 FL (78-98); MEAN PLATELET VOLUME 7.6 FL (7.4-10.4); MONOCYTES # (AUTO) 1.1 X10'3 (0-0.9); MONOCYTES % (AUTO) 8.5 % (2-12); NEUTROPHILS # (AUTO) 5.7 X10'3 (1.8-7.7); NEUTROPHILS % (AUTO) 43.2 % (42-75); PLATELET COUNT 327 X10'3 (140-440); RED BLOOD COUNT 4.15 X10'6 (4.70-6.10); RED CELL DISTRIBUTION WIDTH 14.4 % (11.5-14.5); WHITE BLOOD COUNT 13.1 X10'3 (4.5-11.0)
--- NOTE | 2021-12-18 10:30 | NUR ---
FIRST CONTACT WITH PT, SENT FROM DR. RANGEL'S OFFICE. PT IS SOB WITH EXERTION, HAS 02 ON 5L, BASELINE IS AT 2L. PT NOW BREATHING AT 18 AFTER RESTING IN BED, 02 TURNED DOWN TO 2L, 02 95%. PIV STARTED, LABS DRAWN AND SENT. AWAITING MD REYES.
[2021-12-18 10:32] LABS: ALANINE AMINOTRANSFERASE 28 U/L (12-78); ALBUMIN 3.3 G/DL (3.4-5.0); ALBUMIN/GLOBULIN RATIO 0.8 (1.1-1.5); ALKALINE PHOSPHATASE 198 IU/L (46-116); ANION GAP 8 (8-16); ASPARTATE AMINO TRANSFERASE 18 U/L (10-37); BILIRUBIN,TOTAL 0.5 MG/DL (0.1-1.0); BLOOD UREA NITROGEN 9 MG/DL (7-18); BUN/CREATININE RATIO 13.2 (5.4-32.0); CALCIUM 9.2 MG/DL (8.5-10.1); CHLORIDE 101 MMOL/L (99-107); CREATININE 0.68 MG/DL (0.60-1.10); GLUCOSE 167 MG/DL (70-104); POTASSIUM 3.6 MMOL/L (3.5-5.1); SODIUM 140 MMOL/L (135-145); TOTAL CARBON DIOXIDE 31.1 MMOL/L (24-32); TOTAL PROTEIN 7.6 G/DL (6.4-8.2); eGFR > 90 ML/MIN
[2021-12-18 10:47] LABS: PLATELET ESTIMATE NORMAL; TOTAL CELLS COUNTED 100
[2021-12-18] MEDS ORDERED: ipratropium/albuterol 3ml nebule NEB ONE (12:00)
[2021-12-18] MEDS ORDERED: iohexol 350MG/ML 100ml bottle IV ONE (12:20)
--- NOTE | 2021-12-18 12:30 | NUR ---
to/from ct without incident.
--- NOTE | 2021-12-18 13:06 | NUR ---
lab at bedside.
--- NOTE | 2021-12-18 13:17 | NUR ---
rt at bedside.
--- NOTE | 2021-12-18 14:07 | NUR ---
dr. goodwin at bedside.
[2021-12-18] MEDS ORDERED: furosemide 10 MG/1 ML 10ml inj IV ONE (14:15)
[2021-12-18] MEDS ORDERED: CIPR-202 PO (14:20)
[2021-12-18] MEDS ORDERED: FURO-150 PO (14:20)
[2021-12-18 14:51] VITALS: BP 142/84
[2021-12-19] MEDS ORDERED: MESSAGE TO NURSING PO NR (10:00)
== END 2021-12-18 14:53 | disposition home or self-care (01) ==
LOC: ER 09:27
DX: R06.02 Shortness of breath (principal); J44.9 Chronic obstructive pulmonary disease, unspecified; E11.9 Type 2 diabetes mellitus without complications; F12.90 Cannabis use, unspecified, uncomplicated; Z72.89 Other problems related to lifestyle; Z98.890 Other specified postprocedural states; Z88.0 Allergy status to penicillin; Z88.1 Allergy status to other antibiotic agents; Z79.899 Other long term (current) drug therapy
CPT/HCPCS: 36415; 71046; 71275; 80053; 83605; 83880; 84484; 85007; 85025; 87040; 93005; 94640; 96374; 99285; J1940; Q9967; 94760

== ENCOUNTER 2022-01-03 21:10 | Inpatient (IN) | payer MEDICARE ==
[~2022-01-03] VITALS: Ht 182.9 cm; Wt 80.5 kg
[~2022-01-03 21:10] MED LIST changes: +CIPR-202 PO; +FURO-150 PO
--- NOTE | 2022-01-03 21:18 | NUR ---
JAMAL MELENDEZ ASSESSED PT AT BEDSIDE
[2022-01-03 21:30] LABS: BASOPHILS # (AUTO) 0.1 X10'3 (0-0.2); BASOPHILS % (AUTO) 0.6 % (0-1); EOSINOPHILS % (AUTO) 0.3 % (0-6); HEMATOCRIT 36.7 % (42.0-52.0); HEMOGLOBIN 12.3 g/dl (14.0-17.9); LYMPHOCYTES % (AUTO) 6.6 % (21-51); MEAN CORPUSCULAR HEMOGLOBIN 31.4 PG (27.0-31.0); MEAN CORPUSCULAR HGB CONC 33.5 g/dL (33.0-36.5); MEAN CORPUSCULAR VOLUME 93.7 FL (78-98); MEAN PLATELET VOLUME 7.7 FL (7.4-10.4); MONOCYTES # (AUTO) 2.1 X10'3 (0-0.9); MONOCYTES % (AUTO) 14.2 % (2-12); NEUTROPHILS # (AUTO) 11.4 X10'3 (1.8-7.7); NEUTROPHILS % (AUTO) 78.3 % (42-75); PLATELET COUNT 341 X10'3 (140-440); RED BLOOD COUNT 3.92 X10'6 (4.70-6.10); RED CELL DISTRIBUTION WIDTH 14.4 % (11.5-14.5); WHITE BLOOD COUNT 14.6 X10'3 (4.5-11.0)
[2022-01-03] MEDS ORDERED: normal saline 1000ml 1,000 ML IV ONE ×2 (21:35→23:30)
[2022-01-03 21:52] LABS: ALANINE AMINOTRANSFERASE 34 U/L (12-78); ALBUMIN/GLOBULIN RATIO 0.7 (1.1-1.5); ALKALINE PHOSPHATASE 187 IU/L (46-116); ANION GAP 10 (8-16); ASPARTATE AMINO TRANSFERASE 23 U/L (10-37); BILIRUBIN,TOTAL 0.4 MG/DL (0.1-1.0); BLOOD UREA NITROGEN 16 MG/DL (7-18); BUN/CREATININE RATIO 11.4 (5.4-32.0); CALCIUM 8.5 MG/DL (8.5-10.1); CHLORIDE 100 MMOL/L (99-107); GLUCOSE 184 MG/DL (70-104); LIPASE < 50 U/L (73-393); MAGNESIUM 1.6 MG/DL (1.5-2.4); POTASSIUM 4.4 MMOL/L (3.5-5.1); SODIUM 135 MMOL/L (135-145); TOTAL PROTEIN 7.5 G/DL (6.4-8.2); eGFR 49 ML/MIN
[2022-01-03 22:21] LABS: CLARITY,URINE TURBID (Clear); GLUCOSE, URINE NEGATIVE (Neg); KETONES,URINE TRACE mg/dl (Neg); LEUKOCYTE ESTERASE ,URINE LARGE (Neg); NITRITES, URINE POSITIVE (Neg); OCCULT BLOOD,URINE LARGE (Neg); PH,URINE 8.5 (4.8-8.0); PROTEIN,URINE >=300 mg/dl (Neg); UROBILINOGEN,URINE 0.2 E.U/dL (0.2-1.0)
[2022-01-03 22:36] LABS: COLOR,URINE PINK (Yellow); UA COLLECTION TYPE URINAL
[2022-01-03 22:40] LABS: BACTERIA,URINE 3+ /HPF (Neg); RBC,URINE 20-50 /HPF (0-2); WBC,URINE TNTC /HPF (0-4)
[2022-01-03] MEDS ORDERED: CefTRIAXone 2gm/NS 100ml IVPB 100 ML IV ONE (22:40)
--- NOTE | 2022-01-03 22:40 | NUR ---
WHEN NO ONE IS IN ROOM PT WILL STAND UP AND WALK A COUPLE STEPS FORWARD TO URINATE IN A URINAL. PT HAS URINARY FREQUENCY, URGENCY, AND DYSURIA W/ HEMATURIA.
[2022-01-03 22:41] LABS: SQUAMOUS EPITHELIAL CELL,UR FEW /LPF (FEW)
[2022-01-04] MEDS ORDERED: potassium Cl 20 mEq SR tablet PO PRN ×2 (00:30)
[2022-01-04] MEDS ORDERED: HYDROcodone/acetaminophen 5mg/325mg tablet PO PRN (00:30)
[2022-01-04] MEDS ORDERED: dextrose 50%-water 50ml dispensing syringe IV PRN ×2 (00:30)
[2022-01-04] MEDS ORDERED: ondansetron/PF 4mg/2ml inj IV PRN (00:30)
[2022-01-04] MEDS ORDERED: magnesium 2GM in 50ml NS 50 ML IV PRN (00:30)
[2022-01-04] MEDS ORDERED: potassium CL 10mEq/100ml bag 100 ML IV PRN (00:30)
[2022-01-04] MEDS ORDERED: glucagon, human recombinant 1mg kit SUBCUT PRN (00:30)
[2022-01-04] MEDS ORDERED: acetaminophen 325mg tablet PO PRN ×2 (00:30)
[2022-01-04] MEDS ORDERED: insulin Lispro (HumaLOG) vial - multi-dose SQ SCH (00:30)
[2022-01-04] MEDS ORDERED: MESSAGE TO PHARMACY PO ONE (00:30)
[2022-01-04] MEDS ORDERED: HYDROcodone/acetaminophen 10/325mg tab PO PRN (00:30)
[2022-01-04] MEDS ORDERED: DEXTROSE 15 GM of carb/4 tabs (each vial/BOTTLE has 4 tablets) PO PRN ×2 (00:30)
[2022-01-04] MEDS ORDERED: magnesium 4gm in 100ml NS 100 ML IV PRN (00:30)
[2022-01-04] MEDS ORDERED: mag hydrox/Alum hydrox/simeth 30ml oral suspension PO PRN (00:30)
[2022-01-04] MEDS ORDERED: FLO0.4C PO (00:47)
[2022-01-04] MEDS ORDERED: SULF1TAB45 PO (00:47)
[2022-01-04] MEDS ORDERED: GLIM2TAB6 PO (00:47)
[2022-01-04 01:12] LABS: HEMOGLOBIN A1C 6.5 % (4.5-6.2)
[2022-01-04] MEDS ORDERED: albuterol 2.5 MG/3 ML nebule NEB PRN (01:50)
--- NOTE | 2022-01-04 02:17 | NUR ---
PT STATES HE HAS A MILD HEADACHE AND REQUEST PAIN MEDS. DENIED NORCO. ACCEPTED TYLENOL
[2022-01-04] MEDS: docusate sod 100mg capsule PO SCH ×2 (07:38→20:00)
[2022-01-04] MEDS: K and/or MAG REPLACEMENT MC SCH ×2 (07:48→20:00)
[2022-01-04] MEDS: cefTRIAXone 1g/NS 100ml IVPB 100 ML IV SCH (07:49)
[2022-01-04] MEDS: atorvastatin 20mg tablet PO SCH (07:49)
[2022-01-04] MEDS: lisinopril 20mg tablet PO SCH (07:49)
[2022-01-04] MEDS: tamsulosin 0.4mg capsule PO SCH (07:49)
[2022-01-04] MEDS: methylPREDNISolone sod succ/PF 40mg inj. IV SCH ×2 (07:50→21:07)
[2022-01-04] MEDS: nicotine 7mg patch - 24hr TD SCH (07:50)
[2022-01-04] MEDS ORDERED: nicotine 21mg patch - 24 hr TD SCH (08:00)
[2022-01-04] MEDS: ipratropium/albuterol 3ml nebule NEB SCH ×3 (09:00→20:31)
[2022-01-04 14:00] VITALS: BP 131/78
--- NOTE | 2022-01-04 16:46 | NUR ---
Message: Cyrus Crespo [phone] Did you want this sepsis pt. on fluids? Cant find an order for fluids but pt came up from ER on fluids??? Perlita [id number]
[2022-01-04] MEDS: normal saline 1000ml 1,000 ML IV SCH (17:11)
[2022-01-04 18:00] VITALS: BP 154/81
--- NOTE | 2022-01-04 18:26 | NUR ---
Gave report to Shira VIVEROS.
--- NOTE | 2022-01-04 18:30 | NUR ---
Patient in room [facility]TH[facility] 4016. I have received report from Perlita VIVEROS and had the opportunity to ask questions and assume patient care.
--- NOTE | 2022-01-04 18:32 | NUR ---
Message: Yolanda Crespo [phone] Pt. would like to be limited code- compressions only. Please discuss code status with him. Thank you. Perlita [phone]
--- NOTE | 2022-01-04 18:53 | NUR ---
Patient met protocol for DM, Patient refusing insulin, educated on importance but patient still refusing.
[2022-01-04] MEDS: enoxaparin 40mg/0.4ml syringe SQ SCH (20:00)
[2022-01-04] MEDS: insulin glargine (Lantus) pen - multi-dose SQ SCH (21:00)
--- NOTE | 2022-01-04 21:00 | NUR ---
Patient refusing to take night time insulin Lantus and states, "I wont take any insulin" Education on importance of needing insulin.
[2022-01-04] MEDS: digoxin 250mcg (0.25mg) tablet PO SCH (21:07)
[2022-01-04 22:00] VITALS: BP 147/78
--- NOTE | 2022-01-04 22:43 | NUR ---
Spoke with MD due to patient having persistent hiccups. Spoke with patients about what medication the patient takes and the MD was ok with trying the Compazine.
[2022-01-04] MEDS: proCHLORperazine 10mg tablet PO PRN (23:41)
[2022-01-05] MEDS: normal saline 1000ml 1,000 ML IV SCH ×2 (01:46→19:45)
--- NOTE | 2022-01-05 01:51 | NUR ---
pt refused IV fluids "I pee every 15 minutes and haven't gotten any sleep. I'll put it back on in the morning." educated on risks and benefits of IVF per MD order and diagnosis. pt verbalized understanding.
[2022-01-05 06:00] VITALS: BP 147/78
--- NOTE | 2022-01-05 06:22 | NUR ---
Problems reprioritized. Patient report given, questions answered & plan of care reviewed with Polly VIVEROS.
--- NOTE | 2022-01-05 06:43 | NUR ---
Patient in room ORTHO 4016. I have received report from ZURI VIVEROS and had the opportunity to ask questions and assume patient care.
--- NOTE | 2022-01-05 06:55 | NUR ---
Patient in room ORTH[facility] 4016. I have received report from Meghann and had the opportunity to ask questions and assume patient care.
[2022-01-05] MEDS: ipratropium/albuterol 3ml nebule NEB SCH ×3 (07:42→20:12)
[2022-01-05] MEDS: nicotine 7mg patch - 24hr TD SCH ×3 (08:00→12:50)
[2022-01-05] MEDS: docusate sod 100mg capsule PO SCH ×2 (08:00→19:57)
[2022-01-05 08:03] LABS: BASOPHILS % (AUTO) 0 % (0-1); EOSINOPHILS % (AUTO) 0 % (0-6); HEMATOCRIT 37.1 % (42.0-52.0); HEMOGLOBIN 12.3 g/dl (14.0-17.9); LYMPHOCYTES % (AUTO) 8.7 % (21-51); MEAN CORPUSCULAR HEMOGLOBIN 31.3 PG (27.0-31.0); MEAN CORPUSCULAR HGB CONC 33.1 g/dL (33.0-36.5); MEAN CORPUSCULAR VOLUME 94.6 FL (78-98); MEAN PLATELET VOLUME 8.3 FL (7.4-10.4); MONOCYTES # (AUTO) 0.6 X10'3 (0-0.9); MONOCYTES % (AUTO) 4.7 % (2-12); NEUTROPHILS # (AUTO) 10.4 X10'3 (1.8-7.7); NEUTROPHILS % (AUTO) 86.6 % (42-75); PLATELET COUNT 331 X10'3 (140-440); RED BLOOD COUNT 3.92 X10'6 (4.70-6.10); RED CELL DISTRIBUTION WIDTH 14.7 % (11.5-14.5)
[2022-01-05 08:28] LABS: ALANINE AMINOTRANSFERASE 33 U/L (12-78); ALBUMIN 2.8 G/DL (3.4-5.0); ALBUMIN/GLOBULIN RATIO 0.6 (1.1-1.5); ALKALINE PHOSPHATASE 165 IU/L (46-116); ANION GAP 9 (8-16); ASPARTATE AMINO TRANSFERASE 22 U/L (10-37); BILIRUBIN,TOTAL 0.4 MG/DL (0.1-1.0); BLOOD UREA NITROGEN 22 MG/DL (7-18); BUN/CREATININE RATIO 23.2 (5.4-32.0); CALCIUM 8.7 MG/DL (8.5-10.1); CHLORIDE 103 MMOL/L (99-107); CREATININE 0.95 MG/DL (0.60-1.10); GLUCOSE 172 MG/DL (70-104); POTASSIUM 4.2 MMOL/L (3.5-5.1); SODIUM 138 MMOL/L (135-145); TOTAL CARBON DIOXIDE 25.7 MMOL/L (24-32); TOTAL PROTEIN 7.3 G/DL (6.4-8.2); eGFR 76 ML/MIN
[2022-01-05 10:00] VITALS: BP 190/76
[2022-01-05 10:54] VITALS: BP 147/75
[2022-01-05] MEDS: methylPREDNISolone sod succ/PF 40mg inj. IV SCH ×2 (11:59→19:58)
[2022-01-05] MEDS: cefTRIAXone 1g/NS 100ml IVPB 100 ML IV SCH (12:00)
[2022-01-05] MEDS: tamsulosin 0.4mg capsule PO SCH (12:00)
[2022-01-05] MEDS: atorvastatin 20mg tablet PO SCH (12:01)
[2022-01-05] MEDS: lisinopril 20mg tablet PO SCH (12:01)
--- NOTE | 2022-01-05 12:52 | NUR ---
PATIENT REFUSED MEDS THIS MORNING Addendum: 01/05/22 at 1253 by Danny ORTEGA Amended: Links added.
--- NOTE | 2022-01-05 13:54 | NUR ---
Malnutrition consult: Per physician notes pt reports 50 lb wt loss over the past year since nelly COVID however per malnutrition risk screen pt only reports 2-13 lb wt loss with decreased appetite. Pt with scaled wt h/o 94.03 kg taken 05/11/21, current wt is 80.45 kg though no documentation of how wt was obtained. Pt on a CHO controlled diet and eating well with average 63% PO intake first meal up to 100% PO intake at breakfast this morning. Pt with no documented significant decrease in muscle strength or edema. Pt currently lacks a minimum of two criteria for malnutrition. Pt admit for sepsis secondary to UTI with acute COPD exacerbation. Pt with h/o T2DM, well controlled with A1c 6.5%. LBM 01/04. Will continue to follow and further monitor qualifying criteria for malnutrition and need for nutrition intervention pending trends in PO intake. Recommendations: 1) Continue CHO controlled diet 2) Monitor need for ONS/additional protein 4) Routine bowel care 5) Scaled weight this admit; subsequent weekly scaled weights Addendum: 01/05/22 at [address] Amended: Links added.
--- NOTE | 2022-01-05 13:58 | NUR ---
Malnutrition consult: Per physician notes pt reports 50 lb wt loss over the past year since nelly COVID however per malnutrition risk screen pt only reports 2-13 lb wt loss with decreased appetite. Pt with scaled wt h/o 94.03 kg taken 05/11/21, current wt is 80.45 kg though no documentation of how wt was obtained. Pt on a CHO controlled diet and eating well with average 63% PO intake first meal up to 100% PO intake at breakfast this morning. Pt with no documented significant decrease in muscle strength or edema. Pt currently lacks a minimum of two criteria for malnutrition. Pt admit for sepsis secondary to UTI with acute COPD exacerbation. Pt with h/o T2DM, well controlled with A1c 6.5% which is down from 7.6% 05/11/21 per EMR. LBM 01/04. Will continue to follow and further monitor qualifying criteria for malnutrition and need for nutrition intervention pending trends in PO intake. Recommendations: 1) Continue CHO controlled diet 2) Monitor need for ONS/additional protein 3) Routine bowel care 4) Scaled weight this admit; subsequent weekly scaled weights Addendum: 01/05/22 at [address] Amended: Links added.
[2022-01-05 14:46] VITALS: BP 147/77
--- NOTE | 2022-01-05 15:30 | NUR ---
PRESSURE ULCER EDUCATION: DEFINITION: A pressure ulcer is an area of skin that breaks down when you stay in one position too long. The constant pressure against the skin reduces the blood flow to that area and the affected tissue dies. CAUSES: "Being bedridden or in a wheelchair "Fragile skin "Having a chronic condition, such as diabetes or vascular disease "Inability to move certain parts of your body without assistance "Older age "Incontinence of urine or stool SYMPTOMS: "A reddened area that DOES NOT turn white when pressed on - this can be the beginning of a pressure ulcer "A blister, deep sore or a crater - these can be advanced pressure ulcers FIRST AID: "Relieve the pressure on this area "Keep the area clean and dry "Call your primary doctor if you see any of the above symptoms "DO NOT massage the area "DO NOT use a donut shaped or ring shaped pillow- these actually interfere with the blood flow and cause complications PREVENTION: "Check for pressure ulcers everyday "Change position at least every two hours to relieve pressure "Use items that help relieve pressure- pillows, sheepskin, foam padding, and powders. "Keep skin clean and dry "Eat healthy well balanced meals "Exercise daily IF YOU SEE ANY OF THESE SYMPTOMS WHILE IN THE HOSPITAL - TELL YOUR NURSE IMMEDIATELY. IF YOU SEE ANY OF THESE SYMPTOMS WHILE AT HOME OR HAVE ANY QUESTIONS OR CONCERNS ABOUT PRESSURE ULCERS - CALL YOUR PRIMARY DOCTOR IMMEDIATELY. Addendum: 01/05/22 at 1530 by Jenn Nunez LVN Amended: Links added.
[2022-01-05 18:00] VITALS: BP_SYST 136; BP_SYST 172; BP_DIAS 73; BP_DIAS 91
--- NOTE | 2022-01-05 18:07 | NUR ---
Problems reprioritized. Patient report given, questions answered & plan of care reviewed with Shira VIVEROS
--- NOTE | 2022-01-05 18:36 | NUR ---
Patient in room ORTHO 4016. I have received report from Polly VIVEROS and had the opportunity to ask questions and assume patient care.
--- NOTE | 2022-01-05 19:11 | NUR ---
Patient refusing insulin. Nurse educated patient of the importance of stable BS.
[2022-01-05] MEDS: enoxaparin 40mg/0.4ml syringe SQ SCH (19:57)
[2022-01-05] MEDS: K and/or MAG REPLACEMENT MC SCH (20:00)
[2022-01-05] MEDS: proCHLORperazine 10mg tablet PO PRN (20:10)
[2022-01-05] MEDS: digoxin 250mcg (0.25mg) tablet PO SCH (20:11)
[2022-01-05] MEDS: insulin glargine (Lantus) pen - multi-dose SQ SCH (21:00)
--- NOTE | 2022-01-05 21:30 | NUR ---
Patient refusing night time insulin. Patient request to recheck BS in a couple hours. Educated patient the important of having BS and needing insulin.
[2022-01-05 22:00] VITALS: BP 146/79
--- NOTE | 2022-01-06 06:28 | NUR ---
Problems reprioritized. Patient report given, questions answered & plan of care reviewed with Polly VIVEROS.
[2022-01-06 07:10] VITALS: BP 90/47
[2022-01-06 07:23] LABS: BASOPHILS % (AUTO) 0.3 % (0-1); EOSINOPHILS % (AUTO) 0 % (0-6); HEMATOCRIT 34.3 % (42.0-52.0); HEMOGLOBIN 11.7 g/dl (14.0-17.9); LYMPHOCYTES # (AUTO) 1.7 X10'3 (1.1-4.8); LYMPHOCYTES % (AUTO) 15.2 % (21-51); MEAN CORPUSCULAR HEMOGLOBIN 31.7 PG (27.0-31.0); MEAN CORPUSCULAR VOLUME 93.3 FL (78-98); MEAN PLATELET VOLUME 7.9 FL (7.4-10.4); MONOCYTES % (AUTO) 8.8 % (2-12); NEUTROPHILS # (AUTO) 8.4 X10'3 (1.8-7.7); NEUTROPHILS % (AUTO) 75.7 % (42-75); PLATELET COUNT 362 X10'3 (140-440); RED BLOOD COUNT 3.68 X10'6 (4.70-6.10); RED CELL DISTRIBUTION WIDTH 14.1 % (11.5-14.5); WHITE BLOOD COUNT 11.1 X10'3 (4.5-11.0)
[2022-01-06 07:47] LABS: ALANINE AMINOTRANSFERASE 37 U/L (12-78); ALBUMIN 2.7 G/DL (3.4-5.0); ALBUMIN/GLOBULIN RATIO 0.6 (1.1-1.5); ALKALINE PHOSPHATASE 157 IU/L (46-116); ANION GAP 9 (8-16); ASPARTATE AMINO TRANSFERASE 26 U/L (10-37); BILIRUBIN,TOTAL 0.3 MG/DL (0.1-1.0); BLOOD UREA NITROGEN 25 MG/DL (7-18); BUN/CREATININE RATIO 29.4 (5.4-32.0); CALCIUM 8.7 MG/DL (8.5-10.1); CHLORIDE 103 MMOL/L (99-107); CREATININE 0.85 MG/DL (0.60-1.10); GLUCOSE 137 MG/DL (70-104); MAGNESIUM 1.8 MG/DL (1.5-2.4); SODIUM 139 MMOL/L (135-145); TOTAL CARBON DIOXIDE 27.4 MMOL/L (24-32); TOTAL PROTEIN 7.2 G/DL (6.4-8.2); eGFR 87 ML/MIN
[2022-01-06] MEDS: methylPREDNISolone sod succ/PF 40mg inj. IV SCH ×2 (08:00→19:57)
[2022-01-06] MEDS: docusate sod 100mg capsule PO SCH ×2 (08:00→19:57)
[2022-01-06] MEDS: lisinopril 20mg tablet PO SCH (08:00)
[2022-01-06] MEDS: cefTRIAXone 1g/NS 100ml IVPB 100 ML IV SCH (08:00)
[2022-01-06] MEDS: K and/or MAG REPLACEMENT MC SCH ×2 (08:00→19:57)
[2022-01-06] MEDS: normal saline 1000ml 1,000 ML IV SCH ×2 (09:05→22:25)
[2022-01-06] MEDS: ipratropium/albuterol 3ml nebule NEB SCH ×3 (09:21→20:29)
[2022-01-06 09:53] VITALS: BP 158/85
[2022-01-06] MEDS: tamsulosin 0.4mg capsule PO SCH (10:05)
[2022-01-06] MEDS: atorvastatin 20mg tablet PO SCH (10:08)
--- NOTE | 2022-01-06 12:20 | NUR ---
patient refused antibiotic earilier today stated " my infection is better I don't need it."patient later changed his mind after revisiting the need of full course of the antibiotic with present. Addendum: 01/06/22 at 1230 by Danny ORTEGA Amended: Links added.
--- NOTE | 2022-01-06 13:37 | NUR ---
Patient refused IV fluids. Request NS discontinued after antibiotic was finished infusing. Addendum: 01/06/22 at 1338 by Danny ORTEGA Amended: Links added.
--- NOTE | 2022-01-06 15:31 | NUR ---
refused afternoon accucheck, patient not willing to take insulin and refuses it.
--- NOTE | 2022-01-06 18:30 | NUR ---
Patient in room ORTHO 4016. I have received report from CLEMENTE and had the opportunity to ask questions and assume patient care.
[2022-01-06 19:00] VITALS: BP 144/78
[2022-01-06] MEDS: enoxaparin 40mg/0.4ml syringe SQ SCH (19:57)
[2022-01-06] MEDS: digoxin 250mcg (0.25mg) tablet PO SCH (20:25)
[2022-01-06] MEDS: proCHLORperazine 10mg tablet PO PRN (20:25)
[2022-01-06] MEDS: insulin glargine (Lantus) pen - multi-dose SQ SCH (20:26)
[2022-01-06 22:00] VITALS: BP 141/85
[2022-01-07 05:58] LABS: BASOPHILS % (AUTO) 0.6 % (0-1); EOSINOPHILS # (AUTO) 0.1 X10'3 (0-0.9); EOSINOPHILS % (AUTO) 1.8 % (0-6); HEMATOCRIT 34.9 % (42.0-52.0); LYMPHOCYTES # (AUTO) 1.8 X10'3 (1.1-4.8); LYMPHOCYTES % (AUTO) 24.1 % (21-51); MEAN CORPUSCULAR HEMOGLOBIN 31.7 PG (27.0-31.0); MEAN CORPUSCULAR HGB CONC 34.3 g/dL (33.0-36.5); MEAN CORPUSCULAR VOLUME 92.5 FL (78-98); MEAN PLATELET VOLUME 7.8 FL (7.4-10.4); MONOCYTES # (AUTO) 0.8 X10'3 (0-0.9); NEUTROPHILS # (AUTO) 4.8 X10'3 (1.8-7.7); NEUTROPHILS % (AUTO) 63.5 % (42-75); PLATELET COUNT 347 X10'3 (140-440); RED BLOOD COUNT 3.77 X10'6 (4.70-6.10); RED CELL DISTRIBUTION WIDTH 14.4 % (11.5-14.5); WHITE BLOOD COUNT 7.6 X10'3 (4.5-11.0)
[2022-01-07 06:00] VITALS: BP 152/89
[2022-01-07 06:14] LABS: ALANINE AMINOTRANSFERASE 53 U/L (12-78); ALBUMIN 2.9 G/DL (3.4-5.0); ALBUMIN/GLOBULIN RATIO 0.7 (1.1-1.5); ALKALINE PHOSPHATASE 168 IU/L (46-116); ANION GAP 4 (8-16); ASPARTATE AMINO TRANSFERASE 37 U/L (10-37); BILIRUBIN,TOTAL 0.4 MG/DL (0.1-1.0); BLOOD UREA NITROGEN 22 MG/DL (7-18); BUN/CREATININE RATIO 28.2 (5.4-32.0); CALCIUM 8.7 MG/DL (8.5-10.1); CHLORIDE 103 MMOL/L (99-107); CREATININE 0.78 MG/DL (0.60-1.10); GLUCOSE 119 MG/DL (70-104); POTASSIUM 3.8 MMOL/L (3.5-5.1); SODIUM 137 MMOL/L (135-145); TOTAL CARBON DIOXIDE 29.7 MMOL/L (24-32); eGFR > 90 ML/MIN
--- NOTE | 2022-01-07 06:15 | NUR ---
Problems reprioritized. Patient report given, questions answered & plan of care reviewed with JESSICA.
[2022-01-07] MEDS: K and/or MAG REPLACEMENT MC SCH (07:22)
[2022-01-07] MEDS: nicotine 7mg patch - 24hr TD SCH (08:00)
[2022-01-07] MEDS: methylPREDNISolone sod succ/PF 40mg inj. IV SCH (08:00)
[2022-01-07] MEDS: atorvastatin 20mg tablet PO SCH (08:26)
[2022-01-07] MEDS: tamsulosin 0.4mg capsule PO SCH (08:26)
[2022-01-07] MEDS: docusate sod 100mg capsule PO SCH (08:26)
[2022-01-07] MEDS: proCHLORperazine 10mg tablet PO PRN (08:26)
[2022-01-07] MEDS: lisinopril 20mg tablet PO SCH (08:26)
[2022-01-07] MEDS: cefTRIAXone 1g/NS 100ml IVPB 100 ML IV SCH (08:58)
[2022-01-07] MEDS: ipratropium/albuterol 3ml nebule NEB SCH (09:18)
[2022-01-07 10:00] VITALS: BP 146/74
[2022-01-07] MEDS ORDERED: CEFD300C3 PO (11:11)
[2022-01-07] MEDS ORDERED: BUDE10.22 INH (11:11)
[2022-01-07] MEDS ORDERED: LACT1CAP26 PO (11:11)
== END 2022-01-07 12:00 | disposition home or self-care (01) | DRG 871 ==
LOC: ER 21:10 → ED HOLD 01-04 00:35 → ORTHO 4S 01-04 14:00
PROVIDERS: ADMIT Family Medicine; ATTEND Family Medicine
DX: A41.9 Sepsis, unspecified organism (principal); N17.0 Acute kidney failure with tubular necrosis; N30.01 Acute cystitis with hematuria; J44.1 Chronic obstructive pulmonary disease with (acute) exacerbation; E11.9 Type 2 diabetes mellitus without complications; F17.210 Nicotine dependence, cigarettes, uncomplicated; E78.5 Hyperlipidemia, unspecified; N28.9 Disorder of kidney and ureter, unspecified; N40.0 Benign prostatic hyperplasia without lower urinary tract symptoms; Z20.822 Contact with and (suspected) exposure to COVID-19; Z79.84 Long term (current) use of oral hypoglycemic drugs; Z87.01 Personal history of pneumonia (recurrent); Z86.16 Personal history of COVID-19; Z88.0 Allergy status to penicillin; Z88.8 Allergy status to other drugs, medicaments and biological substances; Z79.899 Other long term (current) drug therapy
CPT/HCPCS: 36415; 71045; 80053; 81001; 82948; 83036; 83605; 83690; 83735; 83880; 84145; 84484; 85025; 87040; 87081; 87088; 87502; 87503; 87635; 93005; 94640; 94760; 97161; 97530; 99285; C9803; G0378; J0696; J1815; J2920; J7030; Q0164

== ENCOUNTER 2022-05-10 21:48 | Emergency (ER) | payer MEDICARE ==
[~2022-05-10] VITALS: Ht 182.9 cm; Wt 72.7 kg
[~2022-05-10 21:48] MED LIST changes: -ALBU8.5H17 INH; +BUDE10.22 INH; -CIPR-202 PO; -DEXA6TAB PO; -FURO-150 PO; +GLIM2TAB6 PO; -GLIM4TAB7 PO; +LACT1CAP26 PO; -PROC10TA10 PO; -UMEC1DIS INH
[2022-05-10 23:46] LABS: BASOPHILS # (AUTO) 0.1 X10'3 (0-0.2); BASOPHILS % (AUTO) 0.8 % (0-1); EOSINOPHILS # (AUTO) 0.5 X10'3 (0-0.9); EOSINOPHILS % (AUTO) 5.9 % (0-6); HEMATOCRIT 37.9 % (42.0-52.0); HEMOGLOBIN 12.8 g/dl (14.0-17.9); LYMPHOCYTES # (AUTO) 0.9 X10'3 (1.1-4.8); MEAN CORPUSCULAR HEMOGLOBIN 31.4 PG (27.0-31.0); MEAN CORPUSCULAR HGB CONC 33.6 g/dL (33.0-36.5); MEAN CORPUSCULAR VOLUME 93.3 FL (78-98); MEAN PLATELET VOLUME 7.5 FL (7.4-10.4); MONOCYTES # (AUTO) 0.6 X10'3 (0-0.9); NEUTROPHILS # (AUTO) 5.8 X10'3 (1.8-7.7); NEUTROPHILS % (AUTO) 74.3 % (42-75); PLATELET COUNT 314 X10'3 (140-440); RED BLOOD COUNT 4.07 X10'6 (4.70-6.10); RED CELL DISTRIBUTION WIDTH 14.6 % (11.5-14.5); WHITE BLOOD COUNT 7.9 X10'3 (4.5-11.0)
[2022-05-11 00:08] LABS: ALANINE AMINOTRANSFERASE 49 U/L (12-78); ALBUMIN 3.3 G/DL (3.4-5.0); ALBUMIN/GLOBULIN RATIO 0.9 (1.1-1.5); ALKALINE PHOSPHATASE 171 IU/L (46-116); ANION GAP 6 (8-16); ASPARTATE AMINO TRANSFERASE 42 U/L (10-37); BILIRUBIN,TOTAL 0.3 MG/DL (0.1-1.0); BLOOD UREA NITROGEN 11 MG/DL (7-18); BUN/CREATININE RATIO 13.9 (5.4-32.0); CALCIUM 9.1 MG/DL (8.5-10.1); CHLORIDE 108 MMOL/L (99-107); CREATININE 0.79 MG/DL (0.60-1.10); GLUCOSE 64 MG/DL (70-104); POTASSIUM 4.5 MMOL/L (3.5-5.1); SODIUM 145 MMOL/L (135-145); TOTAL PROTEIN 7.1 G/DL (6.4-8.2); eGFR > 90 ML/MIN
[2022-05-11 00:47] LABS: CLARITY,URINE CLEAR (Clear); COLOR,URINE YELLOW (Yellow); GLUCOSE, URINE NEGATIVE (Neg); KETONES,URINE NEGATIVE (Neg); LEUKOCYTE ESTERASE ,URINE NEGATIVE (Neg); NITRITES, URINE NEGATIVE (Neg); OCCULT BLOOD,URINE MODERATE (Neg); PROTEIN,URINE NEGATIVE (Neg); UROBILINOGEN,URINE 0.2 E.U/dL (0.2-1.0)
[2022-05-11 00:55] LABS: UA COLLECTION TYPE NON-SPECIFIED
[2022-05-11 00:56] LABS: BACTERIA,URINE 1+ /HPF (Neg)
[2022-05-11 00:57] LABS: SQUAMOUS EPITHELIAL CELL,UR FEW /LPF (FEW)
[2022-05-11 04:40] VITALS: BP 102/75
== END 2022-05-11 04:45 | disposition home or self-care (01) ==
LOC: ER 21:48
DX: E16.2 Hypoglycemia, unspecified (principal); J44.9 Chronic obstructive pulmonary disease, unspecified; E11.9 Type 2 diabetes mellitus without complications; F12.90 Cannabis use, unspecified, uncomplicated; Z88.0 Allergy status to penicillin; Z91.041 Radiographic dye allergy status
CPT/HCPCS: 36415; 80053; 81001; 82948; 85025; 87088; 99285

== ENCOUNTER 2023-03-07 18:47 | Emergency (ER) | payer MEDICARE ==
[~2023-03-07] VITALS: Ht 180.3 cm; Wt 75.9 kg
[~2023-03-07 18:47] MED LIST changes: -LACT1CAP26 PO
[2023-03-07 19:54] LABS: BASOPHILS # (AUTO) 0.1 X10'3 (0-0.2); BASOPHILS % (AUTO) 0.5 % (0-1); EOSINOPHILS # (AUTO) 0.7 X10'3 (0-0.9); EOSINOPHILS % (AUTO) 6.1 % (0-6); HEMATOCRIT 36.9 % (42.0-52.0); HEMOGLOBIN 12.2 g/dl (14.0-17.9); LYMPHOCYTES % (AUTO) 9.6 % (21-51); MEAN CORPUSCULAR HEMOGLOBIN 31.1 PG (27.0-31.0); MEAN CORPUSCULAR HGB CONC 33.1 g/dL (33.0-36.5); MEAN CORPUSCULAR VOLUME 93.8 FL (78-98); MEAN PLATELET VOLUME 7.1 FL (7.4-10.4); MONOCYTES # (AUTO) 1.4 X10'3 (0-0.9); MONOCYTES % (AUTO) 12.6 % (2-12); NEUTROPHILS # (AUTO) 7.7 X10'3 (1.8-7.7); NEUTROPHILS % (AUTO) 71.2 % (42-75); PLATELET COUNT 423 X10'3 (140-440); RED BLOOD COUNT 3.93 X10'6 (4.70-6.10); RED CELL DISTRIBUTION WIDTH 14.6 % (11.5-14.5); WHITE BLOOD COUNT 10.8 X10'3 (4.5-11.0)
[2023-03-07 20:07] LABS: ALANINE AMINOTRANSFERASE 37 U/L (12-78); ALBUMIN 2.4 G/DL (3.4-5.0); ALBUMIN/GLOBULIN RATIO 0.5 (1.1-1.5); ALKALINE PHOSPHATASE 265 IU/L (46-116); ANION GAP 6 (8-16); ASPARTATE AMINO TRANSFERASE 37 U/L (10-37); BILIRUBIN,TOTAL 0.2 MG/DL (0.1-1.0); BLOOD UREA NITROGEN 17 MG/DL (7-18); BUN/CREATININE RATIO 19.5 (10.0-20.0); CALCIUM 9.5 MG/DL (8.5-10.1); CHLORIDE 97 MMOL/L (99-107); CREATININE 0.87 MG/DL (0.60-1.10); GLUCOSE 171 MG/DL (70-104); SODIUM 132 MMOL/L (135-145); TOTAL CARBON DIOXIDE 29.1 MMOL/L (24-32); TOTAL PROTEIN 7.1 G/DL (6.4-8.2); eGFR 84 ML/MIN
--- NOTE | 2023-03-07 20:48 | NUR ---
PT USING OXYGEN ON ARRIVAL, 2L NC
[2023-03-07] MEDS ORDERED: FLO0.4C PO (21:49)
[2023-03-07] MEDS ORDERED: PROC-8 PO (21:49)
[2023-03-07] MEDS ORDERED: proCHLORperazine 10 MG/2 ml inj IV ONE (21:50)
[2023-03-07] MEDS ORDERED: tamsulosin 0.4mg capsule PO ONE (21:50)
[2023-03-07] MEDS ORDERED: tamsulosin 0.4mg capsule PO SCH (21:50)
[2023-03-07] MEDS ORDERED: LIDOcaine 2% 10ml TOPICAL JELLY (Urojet) TP ONE (22:10)
[2023-03-07] MEDS ORDERED: ciprofloxacin 250mg tablet PO ONE (22:25)
[2023-03-07] MEDS ORDERED: LidoCAINE 2% Topical Jelly 11mL syringe TOP ONE (22:30)
[2023-03-07 22:45] VITALS: BP 133/76
== END 2023-03-07 22:46 ==
LOC: ER 18:47
DX: R07.9 Chest pain, unspecified (principal); E11.9 Type 2 diabetes mellitus without complications; J44.9 Chronic obstructive pulmonary disease, unspecified; Z88.0 Allergy status to penicillin; Z88.8 Allergy status to other drugs, medicaments and biological substances
CPT/HCPCS: 36415; 71045; 80053; 83880; 84484; 85025; 93005; A4314; J0780